=== PATIENT | female | born 1955 | race Caucasian/White ===

== ENCOUNTER 2017-08-16 06:28 | Outpatient (CLI) | payer OTHER | END 2017-08-16 06:44 | disposition home or self-care (01) | LOC: LAB 06:28 | DX: D51.0 Vitamin B12 deficiency anemia due to intrinsic factor deficiency (principal); D51.1 Vitamin B12 deficiency anemia due to selective vitamin B12 malabsorption with proteinuria; I10 Essential (primary) hypertension; E78.5 Hyperlipidemia, unspecified; E04.2 Nontoxic multinodular goiter; E83.110 Hereditary hemochromatosis; D50.8 Other iron deficiency anemias; D51.8 Other vitamin B12 deficiency anemias; E78.2 Mixed hyperlipidemia; E03.8 Other specified hypothyroidism ==

== ENCOUNTER 2017-08-16 07:05 | Outpatient (CLI) | payer OTHER | END 2017-08-16 07:21 | disposition home or self-care (01) | LOC: SONOGRAMA 07:05 → MAMO-SONO 07:45 | DX: D51.0 Vitamin B12 deficiency anemia due to intrinsic factor deficiency (principal); D51.1 Vitamin B12 deficiency anemia due to selective vitamin B12 malabsorption with proteinuria; I10 Essential (primary) hypertension; E78.4 Other hyperlipidemia; E04.2 Nontoxic multinodular goiter; E83.110 Hereditary hemochromatosis ==

== ENCOUNTER 2017-10-26 09:42 | Outpatient (CLI) | payer OTHER | END 2017-10-26 09:52 | disposition home or self-care (01) | LOC: RAD 501 09:42 | DX: M25.561 Pain in right knee (principal); M25.562 Pain in left knee ==

== ENCOUNTER 2017-11-10 15:02 | Outpatient (CLI) | payer OTHER | END 2017-11-10 15:12 | disposition home or self-care (01) | LOC: RAD 501 15:02 | DX: M25.531 Pain in right wrist (principal); M25.532 Pain in left wrist ==

== ENCOUNTER 2017-12-21 07:14 | Outpatient (CLI) | payer OTHER | END 2017-12-21 07:25 | disposition home or self-care (01) | LOC: MAMO-SONO 07:14 | DX: Z12.31 Encounter for screening mammogram for malignant neoplasm of breast (principal); N63.21 Unspecified lump in the left breast, upper outer quadrant ==

== ENCOUNTER 2018-01-04 15:43 | Outpatient (CLI) | payer OTHER | END 2018-01-04 15:52 | disposition home or self-care (01) | LOC: LAB 15:43 | DX: I71.4 Abdominal aortic aneurysm, without rupture (principal); N20.0 Calculus of kidney; R10.84 Generalized abdominal pain; Z51.81 Encounter for therapeutic drug level monitoring ==

== ENCOUNTER 2018-01-11 07:06 | Outpatient (CLI) | payer OTHER | END 2018-01-11 10:00 | disposition home or self-care (01) | LOC: TOM 07:06 | DX: I71.4 Abdominal aortic aneurysm, without rupture (principal) ==

== ENCOUNTER → 2018-03-13 06:31 | Outpatient (CLI) | payer OTHER | END | disposition home or self-care (01) | LOC: LAB 06:31 | DX: R10.32 Left lower quadrant pain (principal) ==

== ENCOUNTER 2018-06-17 07:12 | Outpatient (CLI) | payer OTHER | END 2018-06-17 07:21 | disposition home or self-care (01) | LOC: LAB 07:12 | DX: I11.9 Hypertensive heart disease without heart failure (principal); E78.1 Pure hyperglyceridemia ==

== ENCOUNTER 2019-01-05 07:10 | Outpatient (CLI) | payer OTHER | END 2019-01-05 07:30 | disposition home or self-care (01) | LOC: MAMO-SONO 07:10 | DX: Z12.31 Encounter for screening mammogram for malignant neoplasm of breast (principal); Z87.898 Personal history of other specified conditions; N60.12 Diffuse cystic mastopathy of left breast; R92.0 Mammographic microcalcification found on diagnostic imaging of breast ==

== ENCOUNTER → 2019-09-12 | Outpatient (CLI) | payer OTHER | END | disposition home or self-care (01) | LOC: NUCLEAR 13:28 | PROVIDERS: ATTEND Internal Medicine Hematology & Oncology | DX: M81.0 Age-related osteoporosis without current pathological fracture (principal); D51.0 Vitamin B12 deficiency anemia due to intrinsic factor deficiency; D51.1 Vitamin B12 deficiency anemia due to selective vitamin B12 malabsorption with proteinuria; I10 Essential (primary) hypertension; E78.49 Other hyperlipidemia; E04.2 Nontoxic multinodular goiter; E83.110 Hereditary hemochromatosis; I71.4 Abdominal aortic aneurysm, without rupture ==

== ENCOUNTER 2020-01-16 07:43 | Outpatient (CLI) | payer OTHER | END 2020-01-16 08:16 | disposition home or self-care (01) | LOC: MAMO-SONO 07:43 | PROVIDERS: ATTEND Specialist | DX: N60.11 Diffuse cystic mastopathy of right breast (principal) ==

== ENCOUNTER 2020-01-31 06:28 | Outpatient (CLI) | payer OTHER | END 2020-01-31 06:41 | disposition home or self-care (01) | LOC: LAB 06:28 | PROVIDERS: ATTEND Internal Medicine Cardiovascular Disease | DX: E11.9 Type 2 diabetes mellitus without complications (principal); I11.9 Hypertensive heart disease without heart failure; E78.00 Pure hypercholesterolemia, unspecified ==

== ENCOUNTER 2020-05-06 07:03 | Outpatient (CLI) | payer OTHER | END 2020-05-06 07:09 | disposition home or self-care (01) | LOC: SONOGRAMA 07:03 → MAMO-SONO 07:45 | PROVIDERS: ATTEND Internal Medicine Cardiovascular Disease | DX: I11.9 Hypertensive heart disease without heart failure (principal); I70.401 Unspecified atherosclerosis of autologous vein bypass graft(s) of the extremities, right leg; E78.2 Mixed hyperlipidemia ==

== ENCOUNTER 2020-08-19 07:27 | Outpatient (CLI) | payer OTHER | END 2020-08-19 07:33 | disposition home or self-care (01) | LOC: RAD 07:27 | PROVIDERS: ATTEND Orthopaedic Surgery | DX: R07.9 Chest pain, unspecified (principal); M19.042 Primary osteoarthritis, left hand ==

== ENCOUNTER 2021-01-19 07:11 | Outpatient (CLI) | payer OTHER | END 2021-01-19 07:13 | disposition home or self-care (01) | LOC: MAMO-SONO 07:11 | PROVIDERS: ATTEND Specialist | DX: R92.0 Mammographic microcalcification found on diagnostic imaging of breast (principal); N60.12 Diffuse cystic mastopathy of left breast; Z12.31 Encounter for screening mammogram for malignant neoplasm of breast ==

== ENCOUNTER 2021-03-03 06:39 | Outpatient (CLI) | payer OTHER | END 2021-03-03 06:40 | disposition home or self-care (01) | LOC: LAB 06:39 | PROVIDERS: ATTEND Specialist | DX: E11.65 Type 2 diabetes mellitus with hyperglycemia (principal); D64.89 Other specified anemias ==

== ENCOUNTER 2021-05-28 07:07 | Outpatient (CLI) | payer OTHER | END 2021-05-28 07:11 | disposition home or self-care (01) | LOC: RAD 07:07 | PROVIDERS: ATTEND Specialist | DX: J45.998 Other asthma (principal) ==

== ENCOUNTER → 2021-10-06 08:34 | Outpatient (CLI) | payer OTHER | END | disposition home or self-care (01) | LOC: NUCLEAR 08:34 | PROVIDERS: ATTEND Internal Medicine Hematology & Oncology | DX: M81.0 Age-related osteoporosis without current pathological fracture (principal); D51.1 Vitamin B12 deficiency anemia due to selective vitamin B12 malabsorption with proteinuria; I10 Essential (primary) hypertension; E78.5 Hyperlipidemia, unspecified; E04.2 Nontoxic multinodular goiter; E83.110 Hereditary hemochromatosis; I71.4 Abdominal aortic aneurysm, without rupture; R73.01 Impaired fasting glucose ==

== ENCOUNTER → 2022-02-01 | Outpatient (CLI) | payer OTHER | END | disposition home or self-care (01) | LOC: MAMO-SONO 07:10 | PROVIDERS: ATTEND Specialist | DX: R92.0 Mammographic microcalcification found on diagnostic imaging of breast (principal) ==

== ENCOUNTER 2022-05-31 07:11 | Outpatient (CLI) | payer OTHER | END 2022-05-31 07:21 | disposition home or self-care (01) | LOC: SONOGRAMA 07:11 | PROVIDERS: ATTEND Internal Medicine Cardiovascular Disease | DX: I71.43 Infrarenal abdominal aortic aneurysm, without rupture (principal); J45.998 Other asthma ==

== ENCOUNTER 2023-02-03 07:13 | Outpatient (CLI) | payer OTHER | END 2023-02-03 07:16 | disposition home or self-care (01) | LOC: MAMO-SONO 07:13 | PROVIDERS: ATTEND Specialist | DX: R92.0 Mammographic microcalcification found on diagnostic imaging of breast (principal); Z12.31 Encounter for screening mammogram for malignant neoplasm of breast ==

== ENCOUNTER 2023-02-11 07:10 | Outpatient (CLI) | payer OTHER | END 2023-02-11 07:11 | disposition home or self-care (01) | LOC: NUCLEAR 07:10 | PROVIDERS: ATTEND Internal Medicine Cardiovascular Disease | DX: I25.10 Atherosclerotic heart disease of native coronary artery without angina pectoris (principal) | CPT/HCPCS: 78452; 93017; A9500; J0153 ==

== ENCOUNTER 2023-04-26 07:07 | Outpatient (CLI) | payer OTHER | END 2023-04-26 07:15 | disposition home or self-care (01) | LOC: RAD 07:07 | PROVIDERS: ATTEND Internal Medicine Pulmonary Disease | DX: J44.1 Chronic obstructive pulmonary disease with (acute) exacerbation (principal) ==

== ENCOUNTER 2023-06-07 06:19 | Emergency (ER) | payer OTHER ==
[~2023-06-07] VITALS: Ht 172.7 cm; Wt 67.1 kg
[2023-06-07] MEDS ORDERED: LIPITOR40 M1 PO (06:37)
[2023-06-07] MEDS ORDERED: NORVASC2.5 M1 PO (06:37)
[2023-06-07] MEDS ORDERED: VITAMIN B-121000 MC2 SUBCUTANEO (06:38)
[2023-06-07] MEDS ORDERED: NEURIN (06:38)
[2023-06-07] MEDS ORDERED: ADVIL DUAL ACT1 EACH PO (09:53)
== END 2023-06-07 10:03 | disposition home or self-care (01) ==
LOC: ER 06:19
DX: S29.8XXA Other specified injuries of thorax, initial encounter (principal); W19.XXXA Unspecified fall, initial encounter; Y93.89 Activity, other specified; Y92.89 Other specified places as the place of occurrence of the external cause; Y99.8 Other external cause status

== ENCOUNTER 2023-09-06 05:01 | Emergency (ER) | payer OTHER ==
[~2023-09-06] VITALS: Ht 172.7 cm; Wt 65.8 kg
[~2023-09-06 05:01] MED LIST: ADVIL DUAL ACT1 EACH PO; LIPITOR40 M1 PO; NEURIN; NORVASC2.5 M1 PO; VITAMIN B-121000 MC2 SUBCUTANEO
[2023-09-06 06:17] LABS: HEMATOCRIT 41.3 % (36.0-45.00); HEMOGLOBIN 14.3 g/dL (12.0-15.00); MEAN CELL VOLUME 96.2 fL (80.00-100.00); MEAN CORPUSCULAR HEMOGLOBIN 33.3 pg (27.00-32.0); MEAN CORPUSCULAR HGB CONC 34.7 g/dl (32.0-36.0); PLATELET COUNT 277 K/uL (150-450); RED BLOOD COUNT 4.29 M/uL (4.00-6.00); RED CELL DISTRIBUTION WIDTH 14.5 % (11.5-14.5)
== END 2023-09-06 07:08 | disposition home or self-care (01) ==
LOC: ER 05:02
DX: L95.9 Vasculitis limited to the skin, unspecified (principal); R21 Rash and other nonspecific skin eruption

== ENCOUNTER 2023-10-10 12:05 | Outpatient (CLI) | payer OTHER | END 2023-10-10 12:07 | disposition home or self-care (01) | LOC: NUCLEAR 12:05 | PROVIDERS: ATTEND Internal Medicine Hematology & Oncology | DX: M81.0 Age-related osteoporosis without current pathological fracture (principal) ==

== ENCOUNTER 2024-02-07 07:08 | Outpatient (CLI) | payer OTHER | END 2024-02-07 07:19 | disposition home or self-care (01) | LOC: MAMO-SONO 07:08 | PROVIDERS: ATTEND Specialist | DX: D24.1 Benign neoplasm of right breast (principal); Z12.31 Encounter for screening mammogram for malignant neoplasm of breast ==

== ENCOUNTER 2024-07-02 07:04 | Outpatient (CLI) | payer OTHER | END 2024-07-02 07:09 | disposition home or self-care (01) | LOC: RAD 07:04 | DX: M18.12 Unilateral primary osteoarthritis of first carpometacarpal joint, left hand (principal); M18.11 Unilateral primary osteoarthritis of first carpometacarpal joint, right hand ==

== ENCOUNTER 2024-12-26 07:01 | Outpatient (CLI) | payer OTHER | END 2024-12-26 07:05 | disposition home or self-care (01) | LOC: RAD 07:01 | PROVIDERS: ATTEND Orthopaedic Surgery | DX: S52.532A Colles' fracture of left radius, initial encounter for closed fracture (principal) ==

== ENCOUNTER → 2025-01-22 | Outpatient (CLI) | payer OTHER | END | disposition home or self-care (01) | LOC: RAD 10:25 | PROVIDERS: ATTEND Orthopaedic Surgery | DX: S52.572D Other intraarticular fracture of lower end of left radius, subsequent encounter for closed fracture with routine healing (principal) ==

== ENCOUNTER 2025-02-07 07:05 | Outpatient (CLI) | payer OTHER | END 2025-02-07 07:13 | disposition home or self-care (01) | LOC: MAMO-SONO 07:05 | PROVIDERS: ATTEND Specialist | DX: R92.30 Dense breasts, unspecified (principal); Z12.31 Encounter for screening mammogram for malignant neoplasm of breast; I71.40 Abdominal aortic aneurysm, without rupture, unspecified ==